=== PATIENT | female | born 1960 | race Caucasian/White ===

== ENCOUNTER 2018-11-29 07:33 | Outpatient (CLI) | payer BC ==
[2018-11-29] MEDS ORDERED: Iopamidol 370 76% 100 ML VIAL ONE (09:00)
--- NOTE | 2018-11-29 10:11 | CT ---
CT ABDOMEN AND PELVIS WITH AND WITHOUT IV CONTRAST: HISTORY: Hematuria. FINDINGS: The lung bases are clear. The liver, spleen, pancreas, and adrenal glands are normal. No calcified gallstones are seen. There are punctate calculi in the kidneys bilaterally. No calculi are seen in the ureters or the uri nary bladder. No hydroureteral nephrosis is noted on either side. There are small low-density lesio ns in the kidneys on the postcontrast images, likely small cysts. No free air, free fluid, or lymphadenopathy is seen in the abdomen or pelvis. The small bowel loops are not abnormally dilated. A normal-appearing appendix is present. Uterus and ovaries are visualiz ed. There are vascular calcifications without evidence of aneurysmal dilatation of the abdominal aorta . There are mild degenerative changes in the spine. A small fat-containing ventral hernia is seen in the lower anterior abdominal wall. IMPRESSION: 1. Nonobstructing tiny bilateral renal calculi. 2. Probable tiny renal cyst. POS: [facility]
== END 2018-11-29 07:34 | disposition home or self-care (01) ==
LOC: SCSCT 07:33
PROVIDERS: ATTEND Urology
DX: R31.9 Hematuria, unspecified (principal); N20.0 Calculus of kidney; N28.1 Cyst of kidney, acquired
CPT/HCPCS: 74178; Q9967

== ENCOUNTER 2020-09-10 14:08 | Outpatient (CLI) | payer BC | END 2020-09-10 14:09 | disposition home or self-care (01) | LOC: SCSMRI 14:08 | PROVIDERS: ATTEND Podiatrist Foot & Ankle Surgery | DX: G57.62 Lesion of plantar nerve, left lower limb (principal) ==

== ENCOUNTER 2021-09-21 12:21 | Outpatient (CLI) | payer BC | END 2021-09-21 12:22 | disposition home or self-care (01) | LOC: BICRAD 12:21 | PROVIDERS: ATTEND Specialist | DX: S49.92XA Unspecified injury of left shoulder and upper arm, initial encounter (principal); M25.511 Pain in right shoulder; M19.011 Primary osteoarthritis, right shoulder ==

== ENCOUNTER 2021-10-11 11:15 | Outpatient (CLI) | payer BC | END 2021-10-11 11:16 | disposition home or self-care (01) | LOC: BICMRI 11:15 | PROVIDERS: ATTEND Specialist | DX: M25.512 Pain in left shoulder (principal); S43.432A Superior glenoid labrum lesion of left shoulder, initial encounter ==